=== PATIENT | female | born 1985 | race Caucasian/White ===

== ENCOUNTER 2020-05-11 12:16 | Outpatient (NON) | payer BC, SELFPAY ==
[2020-05-11 22:17] LABS: SARS-CoV-2 RNA PCR Negative
== END 2020-05-11 12:17 ==
PROVIDERS: PCP Family Medicine; Visit Provider Physician Assistant
DX: R68.89 Other general symptoms and signs (principal); Z20.822 Contact with and (suspected) exposure to COVID-19
CPT/HCPCS: C9803; U0003

== ENCOUNTER 2021-06-23 10:12 | Emergency (ER) | payer BC, SELFPAY ==
--- NOTE | ~2021-06-23 | XR_ITS ---
EXAMINATION: XR hand LT min 3V INDICATION: Left hand pain TECHNIQUE: Three views of the left hand are obtained COMPARISON: None available FINDINGS: There is no fracture, dislocation, or subluxation. The bones, soft tissues, and joint space s are normal. IMPRESSION: 1. No acute osseous abnormality. Reviewed, dictated and finalized at location A. 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
[2021-06-23 10:22] VITALS: BP 124/65; PULSE 78; RESP 16; TEMP 36.5; O2SAT 100
--- NOTE | 2021-06-23 10:27 | ED.UPPEXIN ---
HPI - Extremity Injury (Upper) General Chief Complaint: Extremity Injury, Upper Stated Complaint: INJURED L HAND Time Seen by Provider: 06/23/21 10:27 Source: patient Mode of arrival: ambulatory Limitations: no limitations History of Present Illness HPI narrative: Rose Marie Higgins is a 35 yo female with a PMH of hypothyroid who comes to the [facility] with L hand injury from 3 yo closing closet on hand this morning, pain at distal metatarsals. states pain is worst when tries to bend fingers, mild swelling no ecchymosis Related Data Home Medications Medication Instructions Recorded Confirmed levothyroxine [Tirosint] PO 06/23/21 Allergies Allergy/AdvReac Type Severity Reaction Status Date / Time Gluten Flour Allergy Intermediate Diarrhea,CR Uncoded 05/20/20 10:04 AMPS Review of Systems Review of Systems: CONSTITUTIONAL: Denies fever, chills, sweats. EYES: Denies visual changes, redness, discharge. ENT: Denies rhinorrhea, congestion, sore throat, otalgia. CARDIOVASCULAR: Denies chest pain, palpitations, edema. RESPIRATORY: Denies dyspnea, wheezing, cough GASTROINTESTINAL: Denies abdominal pain, nausea, vomiting, diarrhea. GENITOURINARY: Denies dysuria, hematuria, abnormal discharge SKIN: Denies rash or itching. NEUROLOGIC: Denies numbness, or focal weakness. PSYCHIATRIC: Denies anxiety or depression. Left hand pain with swelling base of fingers PMFSH Past Medical History Medical History Hypothyroid Family History Family History Sibling Asthma Other Family history of thyroid disease Social History Social History Smoking status: Never smoker Alcohol intake: never Comments At time of signature, I agree with nursing past medical, surgical, social and family history. There is no relevant family history pertinent to the presenting complaint. Exam Narrative: GENERAL: This is a well-nourished, well-developed patient, in mild distress. HEAD: normocephalic, atraumatic. EYES Sclera clear/white. Vision is grossly intact. EARS: External ears normal, . Hearing grossly intact. NOSE: External nose normal without nasal discharge, nares without redness, no rhinorrhea. THROAT: Mucous membranes moist, NECK: Neck supple, non-tender CARDIOVASCULAR: Regular rate and rhythm without murmurs, gallops, or rubs. RESPIRATORY: Clear to auscultation. Breath sounds equal bilaterally. No wheezes, rales, or rhonchi. GASTROINTESTINAL: Abdomen soft, SKIN: warm, intact with no suspicious lesions or rash, good texture and turgor. NEURO: awake, alert, and oriented to person, place and time. There were no obvious focal neurologic abnormalities. Steady gait EXTREMITIES: Normal range of motion. Left hand swelling at the base of fingers, soft tissues, able to do finger opposition with pain, no ecchymosis in area of pain, swelling BACK: Nontender without deformity Course Course Emergency Course: Patient comes with a injury to left hand after child pushed close door onto hand this morning X-ray of left hand shows no change in bone and soft tissue or joint spaces Recommend Tylenol for pain and ice and Parish wrap Level of Care: Express Care Visit Vital Signs Vital signs: Vital Signs Temperature 97.7 F 06/23/21 10:22 Pulse Rate 78 06/23/21 10:22 Respiratory Rate 16 06/23/21 10:22 Blood Pressure 124/65 06/23/21 10:22 Pulse Oximetry 100 06/23/21 10:22 Temperature 97.7 F 06/23/21 10:22 Pulse Rate 78 06/23/21 10:22 Respiratory Rate 16 06/23/21 10:22 Blood Pressure 124/65 06/23/21 10:22 Pulse Oximetry 100 06/23/21 10:22 MDM - Extremity Injury (Upper) Differential Diagnosis Differential diagnosis: Likely sprain and strain of wrist, fracture of wrist, fracture of clavicle and other (Soft tissue injury of hand) Critical Care Time
== END 2021-06-23 10:53 | disposition home or self-care (01) ==
PROVIDERS: Emergency Provider Nurse Practitioner; PCP Family Medicine
DX: S69.92XA Unspecified injury of left wrist, hand and finger(s), initial encounter (principal); X58.XXXA Exposure to other specified factors, initial encounter; E03.9 Hypothyroidism, unspecified
CPT/HCPCS: 73130; 99213; G0463

== ENCOUNTER 2021-08-07 20:34 | Emergency (ER) | payer BC, SELFPAY ==
--- NOTE | ~2021-08-07 | XR_ITS ---
EXAM: XR ankle RT 2V, XR foot RT min 3V HISTORY: SLIPPED ON STEPS. ROLLED Ankle, lateral MALLEOLUS PAIN, right metatarsal pain extending into the toes COMPARISON: None available FINDINGS: Subjective appearance of generally decreased mineralization. Joint spaces are maintained. No fracture or dislocation. Cortical irregularity and subchondral cyst formation at the medial aspect of the talar dome, likely secondary to old trauma or a chronic osteochondral defect. IMPRESSION: No acute osseous finding in the right ankle or right foot. Reviewed, dictated and finalized at location K. IMPRESSION: No acute osseous finding in the right ankle or right foot.
[2021-08-07 20:36] VITALS: BP 113/65; PULSE 92; RESP 16; TEMP 36.7; O2SAT 100
--- NOTE | 2021-08-07 20:55 | ED.LOWEXIN ---
HPI - Extremity Injury (Lower) General Chief Complaint: Extremity Injury, Lower <Sultana Newell PA-C - Last Filed: 08/07/21 21:53> Stated Complaint: R ankle injury <GAURANG Sanders Last Filed: 08/07/21 21:53> Time Seen by Provider: 08/07/21 20:43 <GAURANG Sanders Last Filed: 08/07/21 21:53> Source: patient <GAURANG Sanders Last Filed: 08/07/21 21:53> Mode of arrival: wheelchair <GAURANG Sanders Last Filed: 08/07/21 21:53> Limitations: no limitations <GAURANG Sanders Last Filed: 08/07/21 21:53> History of Present Illness HPI Narrative: This is a 36 year old female that presents to the ER for a right ankle injury sustained just prior to arrival. Reports she was walking down the steps and tripped down the last step. Reports twisting her right ankle. Reports decreased ROM and pain in the area. She is unable to bear weight due to pain. She is currently 12 weeks . Her OB is Dr. Ontiveros. No injuries to the abdomen. Denies other injuries, or numbness. <Sultana Newell PA-C - Last Filed: 08/07/21 21:53> Related Data Home Medications: Home Medications Medication Instructions Recorded Confirmed levothyroxine [Tirosint] PO 06/23/21 <Sultana Newell PA-C - Last Filed: 08/07/21 21:53> Allergies/Adverse Reactions: Allergies Allergy/AdvReac Type Severity Reaction Status Date / Time Gluten Flour Allergy Intermediate Diarrhea,CR Uncoded 05/20/20 10:04 AMPS <GAURANG Sanders Last Filed: 08/07/21 21:53> Review of Systems Review of Systems: CONSTITUTIONAL: Denies fever MUSCULOSKELETAL: Reports joint pain, and myalgia. NEUROLOGIC: Denies numbness <GAURANG Sanders Last Filed: 08/07/21 21:53> All systems reviewed & are unremarkable except as noted in HPI and below <GAURANG Sanders Last Filed: 08/07/21 21:53> [facility] Past Medical History Medical History: Medical History Hypothyroid <GAURANG Sanders Last Filed: 08/07/21 21:53> Family History Family History: Family History Sibling Asthma Other Family history of thyroid disease <GAURANG Sanders Last Filed: 08/07/21 21:53> Social History Social History: Social History Smoking status: Never smoker Alcohol intake: never <GAURANG Sanders Last Filed: 08/07/21 21:53> Exam Narrative: GENERAL: Well-appearing, well-nourished, and in no acute distress. HEAD: Normocephalic, atraumatic. EYES: EOMI. EXTREMITIES: Mildly decreased active ROM in the right ankle due to pain. No edema or obvious deformity. Normal DP pulses. Normal sensation SKIN: Warm, dry, no rash. NEURO: No focal deficits. Alert and oriented x3. PSYCH: Normal mood and affect <GAURANG Sanders Last Filed: 08/07/21 21:53> Course Vital Signs Vital signs: Vital Signs Temperature 98.1 F 08/07/21 20:36 Pulse Rate 92 08/07/21 20:36 Respiratory Rate 16 08/07/21 20:36 Blood Pressure 113/65 08/07/21 20:36 Pulse Oximetry 100 08/07/21 20:36 Temperature 98.1 F 08/07/21 20:36 Pulse Rate 92 08/07/21 20:36 Respiratory Rate 16 08/07/21 20:36 Blood Pressure 113/65 08/07/21 20:36 Pulse Oximetry 100 08/07/21 20:36 <GAURANG Sanders Last Filed: 08/07/21 21:53> Procedures Other Procedure Procedure 1: Other Procedure: Bedside ultrasound performed which shows positive movement with appropriate cardiac activity <GAURANG Sanders Last Filed: 08/07/21 21:53> MDM - Extremity Injury (Lower) MDM Narrative Medical decision making narrative: Patient presents to the emergency department after right ankle injury today. Right foot and ankle x-rays are without acute osseous abnormalities. Patient placed in Parish w
[2021-08-07] MEDS: ACETAMINOPHEN 500 MG TABLET 1000 MG PO (21:15)
== END 2021-08-07 22:00 | disposition home or self-care (01) ==
PROVIDERS: Emergency Provider Emergency Medicine; PCP Family Medicine
DX: O9A.211 Injury, poisoning and certain other consequences of external causes complicating pregnancy, first trimester (principal); S93.401A Sprain of unspecified ligament of right ankle, initial encounter; S96.911A Strain of unspecified muscle and tendon at ankle and foot level, right foot, initial encounter; O99.281 Endocrine, nutritional and metabolic diseases complicating pregnancy, first trimester; E03.9 Hypothyroidism, unspecified; X50.9XXA Other and unspecified overexertion or strenuous movements or postures, initial encounter; Z3A.12 12 weeks gestation of pregnancy
CPT/HCPCS: 73600; 73630; 99283; A9270

== ENCOUNTER 2021-11-18 15:17 | Outpatient (RCR) | payer BC, SELFPAY | END 2022-02-07 11:11 | disposition home or self-care (01) | LOC: ANHDMC 15:17 | PROVIDERS: PCP Family Medicine; Visit Provider Obstetrics & Gynecology | DX: O24.319 Unspecified pre-existing diabetes mellitus in pregnancy, unspecified trimester (principal); Z3A.00 Weeks of gestation of pregnancy not specified; Z71.3 Dietary counseling and surveillance | CPT/HCPCS: G0108 ==

== ENCOUNTER 2022-02-07 09:41 | Outpatient (RCR) | payer BC, SELFPAY ==
[2021-12-23 10:31] VITALS: BP 106/64; PULSE 97
[2021-12-27 14:20] VITALS: BP 106/65; PULSE 86
[2021-12-30 14:02] VITALS: BP 115/64; PULSE 95
[2022-01-03 10:06] VITALS: BP 103/70; PULSE 85
[2022-01-06 09:54] VITALS: BP 110/65; PULSE 94
[2022-01-10 10:18] VITALS: BP 98/69; PULSE 90
[2022-01-13 16:04] VITALS: BP 99/58; PULSE 85
[2022-01-17 10:00] VITALS: BP 101/64; PULSE 94
[2022-01-20 13:23] VITALS: BP 109/68; PULSE 97
[2022-01-24 10:39] VITALS: BP 110/70; PULSE 86
[2022-01-27 09:52] VITALS: BP 109/71; PULSE 81
[2022-01-31 10:00] VITALS: BP 108/66; PULSE 81
[2022-02-03 10:00] VITALS: BP 114/71
[2022-02-07 10:04] VITALS: BP 119/77; PULSE 86
== END 2022-03-23 23:59 | disposition home or self-care (01) ==
LOC: ANHOBOP 09:41
PROVIDERS: PCP Family Medicine; Visit Provider Obstetrics & Gynecology
DX: O24.419 Gestational diabetes mellitus in pregnancy, unspecified control (principal); Z3A.32 32 weeks gestation of pregnancy; Z3A.33 33 weeks gestation of pregnancy; Z3A.35 35 weeks gestation of pregnancy; Z3A.37 37 weeks gestation of pregnancy; Z3A.38 38 weeks gestation of pregnancy
CPT/HCPCS: 59025

== ENCOUNTER 2022-02-09 05:06 | Inpatient (IN) | payer BC, SELFPAY ==
[2022-02-09] VITALS (83 sets, daily range): BP systolic 68–152; BP diastolic 24–116; PULSE 72–123; RESP 16–18; TEMP 36.8–37; O2SAT 94–100; BMI 26.2
[2022-02-09 05:45] LABS: Glucose Point of Care 121 mg/dl (65-105)
--- NOTE | 2022-02-09 05:48 | LDADM ---
This patient, Rose Marie Higgins, was admitted to Labor/Delivery/Recovery 105 on 02/09/22 at 05:06. Plans for labor, pain management and were discussed with patient. Patient/family oriented to hospital policies and general routines including ID bracelet, bed and alarms, visiting hours, pain management, procedures, bathroom and other care routines, personal items, smoking policy, room service/diet and guest tray routines, infant security routines, and visiting hours. Patient/Family are encouraged to report perceived risks to care and to ask questions if they do not understand what they are told or what they should do. See OBIX for further documentation.
[2022-02-09 05:49] LABS: Basophils Absolute Auto 0.1 K/mm3 (0.0-0.1); Basophils Percent Auto 0.8 % (0.2-1.2); Eosinophils Absolute Auto 0.2 K/mm3 (0-0.3); Eosinophils Percent Auto 2.7 % (0-4.4); Hematocrit 36.5 % (37.0-47.0); Hemoglobin 12.5 g/dL (12.0-15.0); Immature Granulocyte Absolute 0.05 K/mm3 (0.00-0.031); Immature Granulocyte Percent A 0.7 % (0-0.5); Lymphocytes Absolute Auto 1.11 K/mm3 (0.9-3.2); Lymphocytes Percent Auto 15.1 % (18.3-44.2); Mean Corpuscular HGB Conc 34.2 g/dl (32-36); Mean Corpuscular Hemoglobin 32.3 pg (26-34); Mean Corpuscular Volume 94.3 fl (80-100); Mean Platelet Volume 11.1 fl (7.4-10.4); Monocytes Absolute Auto 0.4 K/mm3 (0.1-0.6); Monocytes Percent Auto 5.9 % (2.6-8.5); Neutrophils Absolute Auto 5.5 K/mm3 (1.3-6.7); Neutrophils Percent Auto 74.8 % (45.5-73.1); Platelet Count Result 163 k/mm3 (150-375); Red Blood Count 3.87 M/mm3 (4.2-5.4); Red Cell Distribution Width 14.7 % (11.5-14.5); White Blood Count 7.3 K/mm3 (4.5-10.0)
[2022-02-09] MEDS: LACTATED RINGERS 1,000 ML 125 ML IV CONT ×2 (06:09→09:00)
[2022-02-09] MEDS: OXYTOCIN 30 UNITS/NS 500 ML 30 UNITS/500 ML BAG IV CONT (06:10)
[2022-02-09] MEDS: AMPICILLIN 2 GM/NS 100 ML 2 GM/100 ML BAG IVPB (06:10)
--- NOTE | 2022-02-09 07:38 | WPDOBADMIT ---
Obstetrics - Admit Note Admission Note: record reviewed. Additions to the history and/or subsequent changes in the physical findings follow. 36 y/o at 39 weeks here for induction of labor. A2DM, on glyburide at bedtime. GBS bacteruria. AVSS NST reactive TOCO: contractions every 2-5 min ABD soft, nontender, gravid, vertex EXT nontender Cervix 2-3/50/-2. AROM with clear fluid. Vertex. A: IUP at term with favorable cervix, A2DM. GBS pos. P: Oxytocin. Monitor accuchecks. Ampicillin. Anticipate .
[2022-02-09] MEDS: FAMOTIDINE 20 MG/2 ML VIAL IV PUSH (07:49)
[2022-02-09 07:54] LABS: Glucose Point of Care 113 mg/dl (65-105)
--- NOTE | 2022-02-09 09:40 | WPDANESEPPF ---
Anes - Initial Pre Proc Eval Procedure: labor epidural Date/Time: 02/09/22 09:40 Surgeon: Nishant Ontiveros MD Pre Op Diagnosis: labor pain Pre Op Diagnosis: IOL Patient Data Age: 36 Gender: F Height: 1.7 m Weight: 76 kg Last Vital Signs Temp 36.8 C 02/09/22 09:00 Pulse 76 02/09/22 09:39 BP 120/74 02/09/22 09:39 Pulse Ox 100 02/09/22 09:36 O2 Del Method Room Air 02/09/22 05:47 Allergies Allergy/AdvReac Type Severity Reaction Status Date / Time Gluten Flour Allergy Intermediate Diarrhea,CR Uncoded 01/20/22 12:42 AMPS Home Medications Medication Instructions Recorded Confirmed Type glyburide 2.5 mg tablet 2.5 mg PO HS 12/23/21 02/09/22 History levothyroxine 112 mcg capsule 112 mcg PO DAILY 12/23/21 02/09/22 History (Tirosint) vit no.95-ferrous 1 tablet PO DAILY 12/23/21 02/09/22 History fumarate 28 mg-folic acid 800 mcg tablet () Laboratory Tests 02/09/22 02/09/22 02/09/22 05:39 05:41 05:41 WBC 7.3 K/mm3 K/mm3 (4.5-10.0) RBC 3.87 M/mm3 L M/mm3 (4.2-5.4) Hgb 12.5 g/dL g/dL (12.0-15.0) Hct 36.5 % L % (37.0-47.0) MCV 94.3 fl fl (80-100) MCH 32.3 pg pg (26-34) MCHC 34.2 g/dl g/dl (32-36) RDW 14.7 % H % (11.5-14.5) Plt Count 163 k/mm3 k/mm3 (150-375) MPV 11.1 fl H fl (7.4-10.4) Immature Gran % (Auto) 0.7 % H % (0-0.5) Neut % (Auto) 74.8 % H % (45.5-73.1) Lymph % (Auto) 15.1 % L % (18.3-44.2) Arthur % (Auto) 5.9 % % (2.6-8.5) Eos % (Auto) 2.7 % % (0-4.4) Baso % (Auto) 0.8 % % (0.2-1.2) Lymph # (Auto) 1.11 K/mm3 K/mm3 (0.9-3.2) Arthur # (Auto) 0.4 K/mm3 K/mm3 (0.1-0.6) Eos # (Auto) 0.2 K/mm3 K/mm3 (0-0.3) Baso # (Auto) 0.1 K/mm3 K/mm3 (0.0-0.1) Abs Immat Gran (auto) 0.05 K/mm3 H K/mm3 (0.00-0.031) Absolute Neuts (auto) 5.5 K/mm3 K/mm3 (1.3-6.7) Absolute Nucleated RBC 0.0 K/mm3 K/mm3 (0.0-0.012) Nucleated RBC % 0.0 % % (0.0-0.2) POC Capillary Glucose 121 mg/dl H mg/dl (65-105) RPR Pending Blood Type Antibody Screen 02/09/22 02/09/22 05:41 07:52 WBC RBC Hgb Hct MCV MCH MCHC RDW Plt Count MPV Immature Gran % (Auto) Neut % (Auto) Lymph % (Auto) Arthur % (Auto) Eos % (Auto) Baso % (Auto) Lymph # (Auto) Arthur # (Auto) Eos # (Auto) Baso # (Auto) Abs Immat Gran (auto) Absolute Neuts (auto) Absolute Nucleated RBC Nucleated RBC % POC Capillary Glucose 113 mg/dl H mg/dl (65-105) RPR Blood Type A Positive Antibody Screen Negative Patient hx anesthesia problems: none Family hx anesthesia problems: none Results Review: All pre-operative results and documents have been reviewed as part of the pre-operative evaluation. [facility] Past Medical History Medical History Hypothyroid Family History Family History (Updated 01/20/22 @ 12:47 by Tashia Hernandez RN) Sibling Asthma Family history of thyroid disease Father Family history of thyroid disease Mother Family history of thyroid disease Social History Social History Smoking status: Never smoker Alcohol intake: never Substance use: never Spiritual care concerns: No Anes - Eval Final PreProcedure Day of Procedure 02/09/22 09:40 Patient weight: overweight ASA classification: III Anesthetic plan: proceed Anesthesia type and monitoring: regional epidural and standard monitoring Resu
[2022-02-09] MEDS: AMPICILLIN 1 GM/NS 50 ML 1 GM/50 ML BAG IVPB (10:10)
[2022-02-09] MEDS: LIDOCAINE HCL 1% PF 30 ML VIAL (12:39)
--- NOTE | 2022-02-09 13:31 | P.PCNOB_ITS ---
OB - Delivery Note Procedure Delivery date: 02/09/22 Procedure: Induction of labor with Induction method: Per Pitocin Protocol Delivery augmentation: Rupture of Membranes Delivery monitor: External FHT and External Uterine Route of delivery: Laceration Description: Perineal - 2nd Degree Delivery repair: vicryl (3-0) Specimen: Yes (cord blood) Quantitative Blood Loss (ml): 85 Anesthesia type: Local (1% lidocaine) Disposition: PACU Complications: None Narrative: 36 y/o at 39 weeks gestation who presented to the hospital for induc tion of labor. She was given ampicillin for GBS colonization. Accuchecks were monitored. Oxytocin was administered intravenously. Amniotomy was performed with return of clear fluid. She received an epidural for pain control. Her labor progressed and her cervix dilated completely. She pushed with good effort and delivered the 's head to the perineum, followed by the body. The nose and mouth were bulb suctioned. After a delay, the cord was clamped and cut. The infant was handed off the field. Cord blood was collected. The placenta delivered spontaneously and was grossly normal in appearance. The usual 3 vessel cord was noted. A second degree midline perineal laceration was sustained. This was infiltrated with 10 mL 1% lidocaine and reapproximated using 3 0 Vicryl in the usual layered fashion. Excellent hemostasis resulted as did excellent reapproximation of the normal anatomy. Needle and instrument counts were correct. The patient was taken to recovery room in stable condition. The went to the nursery in stable condition. I was present and scrubbed for the entire delivery. [place] Baby Date of : 02/09/22 Time of : 12:36 Weeks of gestation at delivery: 39 Infant gender: Female Weight (pounds): 7 Weight (ounces): 1 presentation: vertex position: Left Occiput Anterior Placenta delivery description: Spontaneous and Normal Configuration Cord Vessel Description: 3 Vessels and Delayed Cord Clamping score one minute: 8 score five minutes: 9
[2022-02-09] MEDS: WITCH HAZEL 40 PADS 1 PAD TOPICAL (14:36)
[2022-02-09] MEDS: BENZOCAINE 20% AER SPR (*SP) 56 GM CAN 1 SPRAY TOPICAL (14:36)
[2022-02-09] MEDS: IBUPROFEN 600 MG TABLET PO ×2 (14:36→20:13)
--- NOTE | 2022-02-09 15:22 | PM.OBDSVD ---
DS: Admitting Diagnosis Discharge Date 02/11/22 Admitting Diagnosis IUP at 39 weeks Favorable cervix A2DM GBS bacteruria DS: Discharge Diagnosis Discharge Diagnosis (1) (normal spontaneous vaginal delivery): Code(s): O80 - Encounter for full-term uncomplicated delivery Status: Acute (2) Gestational diabetes mellitus: Code(s): O24.419 - Gestational diabetes mellitus in , unspecified control Status: Acute (3) GBS (group B streptococcus) UTI complicating : Code(s): O23.40 - Unspecified infection of urinary tract in , unspecified trimester; B95.1 - Streptococcus, group B, as the cause of diseases classified elsewhere Status: Acute OB - DS: Summary OB Procedures : None OB Procedures Intrapartum: Spontaneous Vag Delivery OB Procedures: : None Time Spent with Patient Time attestation: Total time spent providing and/or coordinating discharge services: DS: Data Data Completed and Pending Labs on day of discharge: Labs from last 24 hours 02/09/22 02/09/22 02/09/22 07:52 05:41 05:41 WBC RBC Hgb Hct MCV MCH MCHC RDW Plt Count MPV Immature Gran % (Auto) Neut % (Auto) Lymph % (Auto) [place]ombs % (Auto) Eos % (Auto) Baso % (Auto) Lymph # (Auto) [place]ombs # (Auto) Eos # (Auto) Baso # (Auto) Abs Immat Gran (auto) Absolute Neuts (auto) Absolute Nucleated RBC Nucleated RBC % POC Capillary Glucose 113 H RPR Pending Blood Type A Positive Antibody Screen Negative 02/09/22 02/09/22 05:41 05:39 WBC 7.3 RBC 3.87 L Hgb 12.5 Hct 36.5 L MCV 94.3 MCH 32.3 MCHC 34.2 RDW 14.7 H Plt Count 163 MPV 11.1 H Immature Gran % (Auto) 0.7 H Neut % (Auto) 74.8 H Lymph % (Auto) 15.1 L [place] % (Auto) 5.9 Eos % (Auto) 2.7 Baso % (Auto) 0.8 Lymph # (Auto) 1.11 [place] # (Auto) 0.4 Eos # (Auto) 0.2 Baso # (Auto) 0.1 Abs Immat Gran (auto) 0.05 H Absolute Neuts (auto) 5.5 Absolute Nucleated RBC 0.0 Nucleated RBC % 0.0 POC Capillary Glucose 121 H RPR Blood Type Antibody Screen Discharge Plan Discharge Attending physician on discharge: Nishant Ontiveros Discharging Clinician: Nishant Ontiveros Patient Disposition: Home, Self-Care Activity: pelvic rest Diet: regular Discharge Instructions: Call or return if temperature above 100.4? F, increased abdominal pain, increased vaginal bleeding or any new problems. Stand Alone Forms: General Discharge Information Follow-up/Referrals: Nishant Ontiveros MD [Physician] - 6 Weeks Discharge Medications: New ibuprofen 600 mg tablet 600 mg PO Q6H PRN (Reason: cramps) Qty: 30 0RF hydrocodone-acetaminophen 5-325 mg tablet 1 tablet PO Q6H Qty: 20 0RF Continued levothyroxine [Tirosint] 112 mcg Capsule 112 mcg PO DAILY PNV cmb#95-ferrous fumarate-FA [] 28 mg iron- 800 mcg Tablet 1 tablet PO DAILY Discontinued glyburide 2.5 mg Tablet 2.5 mg PO HS Date of admission: 02/09/22 05:06 Primary Care Provider: Jasmin Doe Admitting Provider: Nishant Ontiveros Attending physician on admission: Nishant Ontiveros Condition: Stable
--- NOTE | 2022-02-09 15:38 | OBPPTRN ---
Patient transferred to post room #281 via wheelchair. Support person present. Oriented to unit, room, information board, rooming in, admission packet and security measures. Patient verbalizes understanding.
[2022-02-09] MEDS: DOCUSATE SODIUM 100 MG CAPSULE PO (17:14)
[2022-02-09] MEDS: ACETAMINOPHEN 325 MG TABLET 650 MG PO (17:14)
[2022-02-10] MEDS: ACETAMINOPHEN 325 MG TABLET 650 MG PO ×2 (00:37→07:38)
[2022-02-10 01:10] VITALS: BP 112/62; PULSE 70; RESP 18; TEMP 36.6; O2SAT 97
[2022-02-10 04:31] VITALS: BP 109/74; PULSE 77; RESP 18; TEMP 36.5; O2SAT 98
[2022-02-10] MEDS: IBUPROFEN 600 MG TABLET PO ×3 (04:38→20:26)
[2022-02-10 05:15] LABS: Hematocrit 33.7 % (37.0-47.0); Hemoglobin 11.4 g/dL (12.0-15.0)
[2022-02-10] MEDS: MULTIVIT/MIN/PREN/FOL AC/IRON TABLET 1 TAB PO (07:38)
[2022-02-10] MEDS: DOCUSATE SODIUM 100 MG CAPSULE PO ×2 (07:38→16:17)
[2022-02-10 07:57] LABS: Rapid Plasma Reagin Non-Reactive (NonReactive)
--- NOTE | 2022-02-10 07:58 | WPDANLDPN2 ---
Anes-Prog Note L&D Date/Time: 02/10/22 07:58 Comfortable throughout: labor and delivery Neuraxial method: epidural Epidural/Spinal procedure site: clean & non-tender Neuro status: Neuro function grossly intact. Cardiovascular status: normal Respiratory status: normal Airway patency: baseline Mental status: baseline Post-Op hydration status: normal Vital Signs: Last Vital Signs Temp 97.7 F 02/10/22 04:31 Pulse 77 02/10/22 04:31 Resp 18 02/10/22 04:31 BP 109/74 02/10/22 04:31 Pulse Ox 98 02/10/22 04:31 O2 Del Method Room Air 02/09/22 15:45 Pain score (VAS): 0/10 I/O: Intake & Output 02/09/22 02/09/22 02/10/22 15:59 23:59 07:59 Intake Total 1050 Output Total 85 Balance 965 Post-procedural complaints: none Patient feedback: Patient satisfied with anesthetic care.
[2022-02-10 08:45] VITALS: BP 120/70; PULSE 82; RESP 16; TEMP 36.7; O2SAT 98
[2022-02-10 11:54] VITALS: BP 102/60; PULSE 88; RESP 16; TEMP 36.8; O2SAT 98
--- NOTE | 2022-02-10 11:54 | PM.OBPNVD ---
OB - PN: Subj Subjective Date/time seen: 02/10/22 11:54 Narrative: Pain OK. Epidural site is sore. No headache. OB - PN: Obj Data Labs CBC & Chem 7: 02/10/22 05:05 Labs: Laboratory Results - last 24 hr 02/09/22 02/10/22 05:41 05:05 Hgb 11.4 L Hct 33.7 L RPR Non-reactive OB - PN A/P Assessment and Plan (1) (normal spontaneous vaginal delivery): Code(s): O80 - Encounter for full-term uncomplicated delivery Status: Acute Plan Comments: A: PPD#1, doing well. P: Routine care. Exam Psych: Other: AVSS ABD soft, nontender, fundus firm EXT nontender
[2022-02-10] MEDS: HYDROcodone/acetaminophen (*CRX) 5-325 MG TABLET 1 TAB PO ×2 (12:55→17:35)
--- NOTE | 2022-02-10 13:18 | PC.NURSE ---
0842 - Introductions were made, then consulted with patient to assess needs related to . Mother led the conversation with her?plans to feed?her and the?experience so far. Resources provided for inpatient and outpatient services using a resource guide and mom/baby guide. Mother voiced understanding of information and will call if there is a request for assistance. [phone] Consulted with patient to assess needs related to . Mother works well with her infant with encouragement and education. Encouraged understanding of the benefits of skin to skin (unwrapping and placing vertically on her chest), responsive feeding and how to watch for early feeding signs, frequency of feeding on demand about every 8-12 times in 24 hours (every 2-3 hours), milk production, duration of feeding,massage touch, signs of adequate intake/output and how to record on the feeding sheet. Reviewed positioning and ear, shoulder, hip alignment, supporting the breast, asymmetrical latch (off-center), and leading with the chin with a big open side gape. latched optimally to the left breast in football position. Education given to mother of how to visualize suck/swallow ratios and listening for drinking at the breast. Infant was able to maintain latch without discomfort to mother. Nipple care reviewed with optimal latch and good positioning. Reminding mother of comfort measures of healing with a warm and wet washcloth for care and prevention of engorgement. Reviewed good handwashing when or touching the breast/nipples to prevent infection. Resources used to facilitate learning were used with the tool and mom/baby guide. Mother demonstrated understanding of responsive feedings, stimulating with skin to skin, hand expressed colostrum, massage touch, talking to infant to encourage if it has been 2 -3 hours since the start of the last , to call if infant does not latch or there is discomfort with . Reported to the primary RN.
[2022-02-10 20:17] VITALS: BP 94/45; PULSE 65; RESP 16; TEMP 36.7; O2SAT 97
[2022-02-11] MEDS: DOCUSATE SODIUM 100 MG CAPSULE PO (07:05)
[2022-02-11] MEDS: IBUPROFEN 600 MG TABLET PO (07:05)
[2022-02-11] MEDS: MULTIVIT/MIN/PREN/FOL AC/IRON TABLET 1 TAB PO (07:05)
[2022-02-11 07:55] VITALS: BP 109/61; PULSE 72; RESP 16; TEMP 36.6; O2SAT 97
[2022-02-11 08:00] VITALS: PULSE 65; RESP 16; O2SAT 97
--- NOTE | 2022-02-11 08:48 | PM.OBPNVD ---
OB - PN: Subj Subjective Date/time seen: 02/11/22 08:48 Narrative: Pain OK. Would like to go home. OB - PN: Obj Data Labs CBC & Chem 7: 02/10/22 05:05 OB - PN A/P Plan Comments: A: PPD#2, doing well. P: Home to f/u 6 weeks. Exam Psych: Other: AVSS ABD soft, nontender, fundus firm EXT nontender
--- NOTE | 2022-02-11 09:36 | PC.NURSE ---
Patient viewed the discharge video Mother & Baby Care, The First Two Weeks . Patient was given the opportunity and encouraged to ask questions. Patient verbalized understanding of information shared and has been given the mother/baby guide for home reference.
[2022-02-14 10:19] VITALS: BP 126/76; PULSE 67; RESP 16; TEMP 37.1; O2SAT 98
== END 2022-02-11 11:45 | disposition home or self-care (01) | DRG 807 ==
LOC: ANHLDR 15:23 → ANHOB2 16:04
PROVIDERS: Admitting Provider Obstetrics & Gynecology; PCP Family Medicine; Visit Provider Obstetrics & Gynecology
DX: O99.824 Streptococcus B carrier state complicating childbirth (principal); Z37.0 Single live birth; O70.1 Second degree perineal laceration during delivery; O99.284 Endocrine, nutritional and metabolic diseases complicating childbirth; O24.425 Gestational diabetes mellitus in childbirth, controlled by oral hypoglycemic drugs; Z3A.39 39 weeks gestation of pregnancy
CPT/HCPCS: 36415; 82948; 85014; 85018; 85025; 86592; 86850; 86900; 86901; A9270; J0290; J2590; J2795; J7120

== ENCOUNTER 2024-04-02 15:24 | Outpatient (CLI) | payer BC, SELFPAY ==
[2024-04-02 16:11] LABS: Influenza A QL RT-PCR Negative (Negative); Influenza B QL RT-PCR Negative (Negative); RSV RNA, RT-PCR Negative (Negative); SARS-CoV-2 RNA PCR Negative (Negative)
== END 2024-04-02 15:25 | disposition home or self-care (01) ==
PROVIDERS: PCP Family Medicine; Visit Provider Physician Assistant
DX: J02.9 Acute pharyngitis, unspecified (principal); R05.9 Cough, unspecified
CPT/HCPCS: 87637

== ENCOUNTER 2024-04-03 11:37 | Outpatient (CLI) | payer BC, SELFPAY ==
--- NOTE | ~2024-04-03 | XR_ITS ---
XR chest 2V Ordering provider: Barb Aaron PA-C History: 38 years Female with . R05.9 - Cough, unspecified . Comparison: None. FINDINGS: MEDIASTINUM: The cardiac silhouette is not enlarged. LUNGS: No infiltrates, effusions or pneumothorax. OTHER: No free air under the diaphragm. IMPRESSION: No acute cardiopulmonary pathology. Reviewed, dictated and finalized at location A. ATION DEAN
== END 2024-04-03 11:38 | disposition home or self-care (01) ==
LOC: ANHIMG 11:39
PROVIDERS: PCP Family Medicine; Visit Provider Physician Assistant
DX: R05.9 Cough, unspecified (principal)
CPT/HCPCS: 71046

== ENCOUNTER 2025-02-15 17:20 | Emergency (ER) | payer BC, SELFPAY ==
--- OUTSIDE RECORDS SUMMARY | 2024-06-11 08:20 | XMS_ITS ---
Author Organization [facility] Address [address] [place], [place] [address] Care Team Providers Care Catalytic Converter Operator Helper Name Role Phone Meghan Michaud [phone] REASON FOR VISIT hypothyroidism/ Re-establish care Encounters Encounter Location Date Provider Diagnosis [facility] Dr. Michaud [address] [place] [id number] 06/11/2024 Meghan Michaud Plan Of Treatment Next Appt Details Provider Name:Meghan Michaud, 09:20:00 AM, [address] [place] [address], [phone], Progress Notes * Vickie SALGADOOB:0 1985 (39 yo F)Acc No.[id number]:06/11/2024 Progress Notes Patient: Rose Marie Han Provider: Hubert Michaud MD :1985 A ge:38 Y S ex:Female Date:06/11/2024 Address:[address] [place], [place] [id number] Subjective: * Chief Complaints: * h ypothyroidism/ Re-establish care * Electronic signature of Fausto Michaud MD on 02/15/2025 at 05:21 PM CDT Sign off status: Pending * Provider: Hubert Michaud MD Date: 0 06/11/2024 Generated for Printi ng/Faxing/eTransmitting on: 1 05:21 PM CDT
--- OUTSIDE RECORDS SUMMARY | 2024-07-09 05:40 | XMS_ITS ---
Author Organization [employer] [facility] Address [address] [place] [place] [address] Care Team Providers Care Manager Aerospace Name Role Phone Meghan Michaud Primary Care Provider REASON FOR VISIT 1 month f/u augustin Encounters Encounter Location Date Provider Diagnosis [facility] [employer] - Meghan Michaud [address] [place] [address] 07/09/2024 Meghan Michaud Plan Of Treatment No Information Progress Notes * Vickie SALGADOOB:0 1985 (39 yo F)Acc No.[id number]:07/09/2024 Progress Notes Patient: Rose Marie SHABAZZ Provider: Hubert Michaud MD :1985 A ge:38 Y S ex:Female Date:07/09/2024 Address:[address] [place], [place] [id number] Subjective: * Chief Complaints: * 1 . 1 month f/u augustin. * Medical History: Objective: * Vitals: Assessment: Plan: * Treatment: * Billing Information: * Visit Code: * Procedure Codes: * Electronic signature of Fausto Michaud MD on 02/15/2025 at 05:21 PM CDT Sign off status: Pending * Provider: Hubert Michaud MD Date: 0 07/09/2024 Generated for Rubén hicks/Lydia/eTransmitting on: 1 05:21 PM CDT
--- NOTE | ~2025-02-15 | CT_ITS ---
EXAMINATION: CT brain wo con COMPARISON: None HISTORY: concussion TECHNIQUE: Axial images were obtained through the brain without IV contrast. CT scan performed using dose optimization techniques including the following automated exposure control; adjustment of mA and/or kV; use of iterative reconstruction technique. Automatic exposure control was used to reduce radiation dose. Permanent radiation dose record is archived to PACS. FINDINGS: No acute infarct or parenchymal hemorrhage. No abnormal mass or mass effect. No midline shift. No extra-axial fluid collections. No hydrocephalus. . Mastoid air cells unremarkable. Sinuses and orbits unremarkable. No acute fracture. No significant facial or scalp soft tissue swelling evident. No radiopaque foreign body is seen. Impression: 1.No acute intracranial abnormality. Reviewed, dictated and finalized at location P. Impression: 1.No acute intracranial abnormality.
--- OUTSIDE RECORDS SUMMARY | 2025-02-15 17:21 | XMS_ITS | Clinical Summary ---
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 If there is a need to make changes, will recheck levels in 2-3 months. Instructions to patient on taking medication properly : in the morning, on an empty stomach , 1 h part from food and/or other meds. If any doses are missed, can take 2-3 tab together ,to make up for the missed dose; make sure at the end to the week, 7 tabs have been taken. Assessment & Plan (08/22/2017 10:58 AM CDT): Will check TSH and free T4 Will adjust dose of Levothyroxine accordingly . If there is a need to make changes, will recheck levels in 2-3 months. Instructions to patient on taking medication properly : in the morning, on an empty stomach , 1 h part from food and/or other meds. If any doses are missed, can take 2-3 tab together ,to make up for the missed dose; make sure at the end to the week, 7 tabs have been taken. 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 Family History Medical History Relation Name Comments Migraines Mother Stroke Mother Thyroid disease Other 1 Family histo ry of Thyroid disorder; Other Other 2 Family history of graves; Other Other 3 Family history of lyme disease; Other Other 4 Family history of celiac; Hyperlipidemia Other 5 Family histor y of Hyperlipidemia; Hypertension Other 6 Family history of Hypertension; Relation Name Status Comments Mother Other 1 Other 2 Other 3 Other 4 Other 5 Other 6 Social History Tobacco Use Types Packs/Day Years Used Date Smoking Tobacco: Never Alcohol Use Standard Drinks/Week Comments No 0 (1 standard drink = 0.6 oz pur e alcohol) PHQ-2 Answer Date Recorded PHQ-2 Score 0 12/29/2018 Comments Unknown Sex and Gender Information Value Date Recorded Sex Assigned at Not on file 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 Gender Identity Not on file Sexual Orientation Not on file Obstetrics History Last Filed Vital Signs Vital Sign Reading Time Taken Comments Blood Pressure 99/69 12/22/2023 10:55 AM CDT Pulse 77 12/22/2023 10:55 AM CDT Temperature 36.6 C (97.8 F) 12/22/2023 10:55 AM CDT Respiratory Rate 12 03/08/2018 3:23 PM CDT Oxygen Saturation 98% 12/22/2023 10:55 AM CDT Inhaled Oxygen Concentration - - Weight 65.8 kg (145 lb) 12/22/2023 10:55 AM CDT Height 170.2 cm (5' 7) 12/22/2023 10:55 AM CDT Body Mass Index 22.71 12/22/2023 10:55 AM CDT Plan of Treatment Health Maintenance Due Date Last Done Comments Cervical Cancer Screening 1985 Hepatitis C Screening 1985 Varicella Vaccines (1 of 2 - 13+ 2-dose series) 1998 Hepatitis B Screening 07/16/2003 Regular Well Visit/Exam 18-64 07/16/2003 HPV Vaccines (1 - 3-dose SCDM series) 2012 Depression Screening 03/08/2019 03/08/2018, 08/22/2017, 02/14/2017 Influenza Vaccine (#1) 2025 8, 02/15/2017, 02/08/2015, Additional history exists DTaP/Tdap/Td Vaccine (3 - Td or Tdap) 01/27/2027 01/27/2017, 07/22/2014 Pneumococcal vaccine <65 Aged Out No longer eligible based on patient's age to complete this topic Insurance [employer] Member Subscriber Plan / Payer ( fective 2019-Present) Name:Mya Salgado Candace Relation to Subscriber:Self Name:Mya Salgado Candace Payer ID:[id number] ([facility]) Type:[employer] Address: [address] [place] [address] Care Teams Credit Consultant Relationship Specialty Start Date End Date Jasmin Doe MD [address] [place] [address] PCP - General Family Medicine 02/14/17
--- OUTSIDE RECORDS SUMMARY | 2025-02-15 17:21 | XMS_ITS | Patient Health Record ---
Author Organization [employer] [facility] Address [address] [address] Care Team Providers Care Sow Manager Name Role Phone Meghan Michaud Primary Care Provider [phone] Allergies No Known Allergies Reason For Referral No Information Medications Medication SIG (Take, Route, Fr equency, Duration) Notes Start Date End Date Status Tirosint 100 MCG 1 capsule in the mor fiona on an empty stomach Orally Once a day Active PROzac 40 MG 1 capsule Orally Once a day Active Problems Problem Type SNOMED Code ICD Code Onset Dates Problem Status W/U Status Risk Notes Problem Vitamin D deficiency (53680315) Vitamin D deficiency, unspecified (E55.9) Active confirmed Problem Hypothyroidism (95409205) Hypothyroidism, unspecified (E03.9) Active confirmed Vital Signs Heart Rate 79 /min 06/11/2024 Blood pressure diastolic 69 mm Hg 06/11/2024 Height 67 in 06/11/2024 Blood pressure systolic 108 mm Hg 06/11/2024 Weight 157.0 lbs 06/11/2024 BMI 24.59 kg/m2 06/11/2024 Encounters Encounter Location Date Provider Diagnosis [facility] - Meghan Michaud [address] [place] [address] 07/09/2024 Meghan [facility] - Meghan Michaud [address] [place] [address] 06/11/2024 Meghan Michaud Hypothyroidism, unspecified E03.9 ; Other fatigue R53.83 ; Abnormal weight gain R63.5 ; Vitamin D deficiency, unspecified E55.9 and Gestational diabetes mellitus in , diet controlled O24.410 Assessments Encounter Date Diagnosis (ICD Code) Assessment Notes Treatment Notes Treatment Clinical Notes Section Notes 06/11/2024 Other fatigue (ICD-10 - R53.83) 06/11/2024 Hypothyroidism, unspecified (ICD-10 - E03.9) 06/11/2024 Abnormal weight gain (ICD-10 - R63.5) 06/11/2024 Vitamin D deficiency, unspecified (ICD-10 - E55.9) 06/11/2024 Gestational diabetes mellitus in , diet controlled (ICD-10 - O24.410) 06/11/2024 Other Assessment and Plan: HypothyroidismPatient reports fatigue and weight gain (12 pounds since April) without changes in diet or activity. Currently taking Tirosint 100 mcg. Recent insurance and job change requires new medication authorizations.Order thyroid function tests to assess current thyroid statusEvaluate need for dose adjustment based on lab resultsAssist with new insurance authorization for TirosintSchedule a follow-up in one month to review lab results and adjust treatment if necessary PrediabetesPatient reports occasional self-monitoring of fasting blood glucose, with today's reading at 112 mg/dL. History of gestational diabetes. Previous A1C was reported as normal by family doctor last year.Order fasting glucose and A1C tests to monitor blood sugar levelsEvaluate for vitamin and iron deficiencies as part of overall health assessmentEducate patient on diabetes risk and prevention strategies, emphasizing lifestyle modifications FatiguePatient reports feeling really tired lately for the past few months. Sleep is described as hit or miss due to childcare responsibilities, but overall pretty good. Anxiety is reported as controlled with Prozac 40 mg.Assess thyroid and glucose lab results for potential causes of fatigue, considering the patient's history of hypothyroidism and prediabetesConsider adrenal hormone testing if initial labs are inconclusive to explore other potential causes of fatigue Follow-up:Encourage patient to contact the clinic if any new or worsening symptoms occur before the scheduled follow-up. Spent 45 minutes preparing to see the patient (ex review of tests/chart), obtaining and / or reviewing separately obtained history, performing a medically appropriate examination and/or evaluation, counseling and educating the patient/family/caro centeriv er, ordering medications, tests, or procedures, referring and communicating with other health care transport nurse, documenting clinical information in the electronic or other health record, independently interpreting results and communicating results to the patient/family/caregiv er and care coordinating patient plan. Patient alert and oriented x 4 and aware of discussion noted above and in agreeance to plan in management of hypothyroidism, fatigue, weight gain evaluation, hx of gestational DM. Plan Of Treatment No Information Insurance Providers Payer Name Payer Address Payer Phone Subscriber Number Group Number Insured Name Patient Relationship to Insured Coverage Start Date Coverage End Date [facility] [address] [place] [address] [id number] Rose Marie Kebede Self - patient is the insured Medical (General) History Medical History History ICD Code VEGA'S HYPOTHYROID Surgical History Surgery Date(Month/Year) ANKLE SURGERY 2000 Hospitalization History Reason Date(Month/Year) / CHILD 15,17,
--- OUTSIDE RECORDS SUMMARY | 2025-02-15 17:21 | XMS_ITS | Clinical Summary ---
Author Organization [facility] Address [address] [address] Care Team Providers Care Screening Unit Registered Nurse Name Role Phone Unavailable Primary Care Provider Unavailabl e Source Comments [facility],non-owned Affiliates and Associated Physician Practices is amultiple site organization consisting of ambulatory clinics and hospital sitesin [place], [place], [place] and [place]. This disclosure is being madepursuant to the Care Everywhere program and may not contain all information available regarding this patient. Last updated 18.[facility] [employer] Allergies No known active allergies Immunizations Immunization Administration Dates Next Due TDAP (7yrs+) 01/27/2017 Social History Tobacco Use Types Packs/Day Years Used Date Smoking Tobacco: Never Assessed Comments Unknown Sex and Gender Information Value Date Recorded Sex Assigned at Not on file Legal Sex Female 10:18 AM CDT Gender Identity Not on file Sexual Orientation Not on file Plan of Treatment Health Maintenance Due Date Last Done Comments HIV SCREENING 2000 HEPATITIS C SCREENING 07/11/2003 HEPATITIS B VACCINE (1 of 3 - 19+ 3-dose series) 2004 PAP SMEAR 2006 HPV VACCINE (1 - 3-dose SCDM series) 2012 DEPRESSION SCREENING 05/08/2024 COVID-19 VACCINE ( - 2023-2 5 season) 2025 INFLUENZA VACCINE (#1) 2025 01/14/2022 DTAP/TDAP/TD VACCINES (2 - T d or Tdap) 01/27/2027 01/27/2017 ZOSTER VACCINE (1 of 2) 07/16/2035 HIB VACCINE Aged Out No longer eligi ble based on patient's age to complete this topic MENINGOCOCCAL (Group B) VACC INE SHARED DECISION-MAKING Aged Out No longer eligibl e based on patient's age to complete this topic MENINGOCOCCAL GROUPS A/C/Y/W VACCINE Aged Out No longer eligible b ased on patient's age to complete this topic PNEUMOCOCCAL VACCINE Aged Out No long er eligible based on patient's age to complete this topic Insurance [facility] Member Subscriber Plan / Payer (Ef fective 2019-Present) Name:Mya Salgado Relation to Subscriber:Self Name:MYA SALGADO Payer ID:[id number] ([facility]) Type:[facility] Address: [address] [place] [address] [facility]
--- OUTSIDE RECORDS SUMMARY | 2025-02-15 17:21 | XMS_ITS | Clinical Summary ---
Author Organization [facility] [place] Address [address] [facility] [place] [address] Care Team Providers Care Abstract Checker Name Role Phone Unavailable Primary Care Provider Unavailabl e Allergies No known active allergies Medications Levothyroxine 88 mcg Capsule Tirosint 88 mcg capsule Active ALPRAZolam (XANAX) 0.25 mg tablet Take 0.25 mg by mouth daily at bedtime. Active FLUoxetine (PROzac) 40 mg capsule Take 40 mg by mouth daily. Active Active Problems No known active problems Immunizations Immunization Administration Dates Next Due INFLUENZA VACCINE TRIVALENT SPLIT VIRUS, (6 MOS UP), 0.5ML (PF), IM 02/11/2025 Social History Tobacco Use Types Packs/Day Years Used Date Smoking Tobacco: Never Assessed Comments Unknown Sex and Gender Information Value Date Recorded Sex Assigned at Not on file Legal Sex Female 11:37 AM CDT Gender Identity Not on file Sexual Orientation Not on file Last Filed Vital Signs Vital Sign Reading Time Taken Comments Blood Pressure 116/80 10/16/2023 12:21 PM CDT Pulse 81 10/16/2023 12:21 PM CDT Temperature 36.9 C (98.4 F) 10/16/2023 12:21 PM CDT Respiratory Rate 17 10/16/2023 12:21 PM CDT Oxygen Saturation 100% 10/16/2023 12:21 PM CDT Inhaled Oxygen Concentration - - Weight 68 kg (150 lb) 10/16/2023 12:21 PM CDT Height 170.2 cm (5' 7) 10/16/2023 12:21 PM CDT Body Mass Index 23.49 10/16/2023 12:21 PM CDT Plan of Treatment Health Maintenance Due Date Last Done Comments HEPATITIS B VACCINES (1 of 3 - 19+ 3-dose series) 07/06 HPV/Cotest (21-29) 2006 HPV VACCINES (1 - 3-dose SCDM series) 2012 CERVICAL CANCER SCREENING 07/16/2015 HPV/Cotest (30-65) 07/16/2015 PAP SMEAR 07/16/2015 DTAP/TDAP/TD VACCINES (2 - Td or Tdap) 01/27/2027 INFLUENZA VACCINE Completed 02/11/2025 Insurance [employer]UE [employer] Member Subscriber Plan / Payer (Ef fective 2019-Present) Name:Rose Marie Dawn Relation to Subscriber:Self Name:Rose Marie Dawn Payer ID:[id number] (NA) Group ID:Not on file Type:[employer] Address: [place] [address] [employer]
--- OUTSIDE RECORDS SUMMARY | 2025-02-15 17:21 | XMS_ITS | Encounter Summary ---
Author Organization [facility] Address [address] [place] [address] Care Team Providers Care Rolling Machine Tender Name Role Phone Unavailable Primary Care Provider Unavailabl e Encounter Details Date Type Department Care Team (Late st Contact Info) Description 01/04/2019 Lab Requisition [facility] Lab [address] [facility] [place] [address] Maggie Lam DO [address] [facility] [address] [place] [address] Social History Tobacco Use Types Packs/Day Years Used Date Smoking Tobacco: Never Assessed Comments Unknown Sex and Gender Information Value Date Recorded Sex Assigned at Not on file Legal Sex Female 10:18 AM CDT Gender Identity Not on file Sexual Orientation Not on file documented as of this encounter Plan of Treatment Not on file documented as of this encounter Procedures Procedure Name Priority Date/Time Associated Diagnosis Comments DERMATOPATHOLOGY Routine 01/03/2019 12:0 0 AM CDT documented in this encounter Results * DERMATOPATHOLOGY (01/03/2019 12:00 AM CDT) Case Report Dermatopathology Report Case: [id number] Authorizing Provider: Maggie Lam DO Collected: 01/03/2019 12:00 AM Ordering Location: [facility] Care DermPath Lab Received: 01/04/2019 11:25 AM Pathologist: Hubert Lainez MD Specimen: Skin, left cheek 4:21 PM CDT DERMATOPATHOLOGY LABORATORY Final Diagnosis Specimen A. SKIN, left cheek: ACTINIC KERATOSIS, LICHENOID (L57.0) (see microscopic description) 4:21 PM T DERMATOPATHOLOGY LABORATORY at 1621 CDT Clinical History ISK vs BCC. 4:21 PM T DERMATOPATHOLOGY LABORATORY Gross Description Specimen A: Received is one formalin filled container labeled with the patient's name and designated left cheek. The specimen consists of a shave measuring [id number]. Jar 0. 4:21 PM CDT DERMATOPATHOLOGY LABORATORY Microscopic Description Specimen A. SKIN, left cheek: There is focal parakeratosis. The lower half of the epidermis shows disorderly maturation of keratinocytes with nuclear pleomorphism. The dermis shows a band-like, chronic inflammatory infiltrate with occasional apoptotic keratinocytes and some basal vacuolar alteration. Bonifacio-Ep4 does not highlight the tumor cells. Additional deeper sections were obtained and reviewed. 4:21 PM CDT DERMATOPATHOLOGY LABORATORY Disclaimer An external and internal positive and negative controls are appropriate for the histochemical, immunohistochemical and immunofluorescence stain(s) in this case (if any), except where stated explicitly. The performance characteristics of the stain(s) cited in this report were developed and its performance characteristic determined by the Dermatopathology Laboratory at [facility], directed by Dr. Candace Lainez. These tests need not be, and therefore are not, approved by the [place] Food and Drug Administration. The tests are used for clinical purposes. Billing Codes Specimen Charges Stain Charges 30650 1 04952 1 4:21 PM CDT DERMATOPATHOLOGY LABORATORY Embedded Images 4:21 PM CDT DERMATOPATHOLOGY LABORATORY Pathology/Cytolog y TISSUE SPECIMEN FROM SKIN / Unknown 01/03/2019 01/04/2019 11:25 AM CDT us Maggie Lam DO LAB - PATHOLOGY/CYTOLOGY ORDERABLES Final Result DERMATOPATHOLOGY LABORATORY [facility] - Department of Dermatology [address] [facility]th Floor Lab [address] [phone] documented in this encounter Visit Diagnoses Not on filedocumented in this encounter
--- OUTSIDE RECORDS SUMMARY | 2025-02-15 17:22 | XMS_ITS | Patient Health Record ---
Author Organization [facility] Address [address] [place], [place] [address] Care Team Providers Care Compressor Stations Superintendent Name Role Phone Meghan Michaud Unavailable [phone] Allergies No Known Allergies Results Component Value Reference Range Flag Notes .COMPREHENSIVE METABOLIC BACON EL (75521) CMP Reviewed date:11/27/2024 04:12:54 PM Interpretation: Performing Lab:[place], [facility]-[id number] Conrad Armendariz, [id number] Lakehsia Underwood MD Notes/Report: FASTING:YES FASTING: YES GLUCOSE 96 65-99 mg/dL N Fasting reference interval UREA NITROGEN (BUN) 19 7-25 mg/dL N CREATININE 0.75 0.50-0.97 mg/dL N EGFR 104 > OR = 60 mL/min/1.73m2 N BUN/CREATININE RATIO SEE NOTE: 6-22 (calc) Not Reported: BUN and Creatinine are within reference range. SODIUM 138 135-146 mmol/L N POTASSIUM 4.3 3.5-5.3 mmol/L N CHLORIDE 105 98-110 mmol/L N CARBON DIOXIDE 25 20-32 mmol/L N CALCIUM 8.9 8.6-10.2 mg/dL N PROTEIN, TOTAL 6.9 6.1-8.1 g/dL N ALBUMIN 4.7 3.6-5.1 g/dL N GLOBULIN 2.2 1.9-3.7 g/dL (calc) N ALBUMIN/GLOBULIN RATIO 2.1 1.0-2.5 (calc) N BILIRUBIN, TOTAL 1.1 0.2-1.2 mg/dL N ALKALINE PHOSPHATASE 64 31-125 U/L N AST 24 10-30 U/L N ALT 43 6-29 U/L H .LIPID PANEL, STANDARD (7600 ) Reviewed date:11/27/2024 04:12:54 PM Interpretation: Performing Lab:[facility] [employer] Stefania-[id number] Conrad Armendariz, [id number] Lakeshia Underwood MD Notes/Report: FASTING:YES FASTING: YES CHOLESTEROL, TOTAL 174 <200 mg/dL N HDL CHOLESTEROL 52 > OR = 50 mg/dL N TRIGLYCERIDES 74 <150 mg/dL N LDL-CHOLESTEROL 106 H Reference range: <100 Desirable range <100 mg/dL for primary prevention; <70 mg/dL for patients with CHD or diabetic patients with > or = 2 CHD risk factors. LDL-C is now calculated using the Becki calculation, which is a validated novel method providing better accuracy than the Friedewald equation in the estimation of LDL-C. Rod KENNEDY et al. BALDEMAR. 2013;310(19): 3508-4119 (http://[employer] Union/faq/UIE282) CHOL/HDLC RATIO 3.3 <5.0 (calc) N NON HDL CHOLESTEROL 122 <130 mg/dL (calc) N For patients with diabetes plus 1 major ASCVD risk factor, treating to a non-HDL-C goal of <100 mg/dL (LDL-C of <70 mg/dL) is considered a therapeutic option. .CBC (INCLUDES DIFF/PLT) (63 99) Reviewed date:11/27/2024 04:12:54 PM Interpretation: Performing Lab:Slava CROCKER-[id number] Conrad Armendariz, [id number] Lakeshia Underwood MD Notes/Report: FASTING:YES FASTING: YES WHITE BLOOD CELL COUNT 4.2 3.8-10.8 Thousand/uL N RED BLOOD CELL COUNT 4.20 3.80-5.10 Million/uL N HEMOGLOBIN 12.9 11.7-15.5 g/dL N HEMATOCRIT 40.0 35.0-45.0 % N MCV 95.2 80.0-100.0 fL N MCH 30.7 27.0-33.0 pg N MCHC 32.3 32.0-36.0 g/dL N condition. For adults, a slight decrease in the calculated MCHC value (in the range of 30 to 32 g/dL) is most likely not clinically significant; however, it should be interpreted with caution in correlation with other red cell parameters and the patient's clinical RDW 12.5 11.0-15.0 % N PLATELET COUNT 196 140-400 Thousand/uL N MPV 10.9 7.5-12.5 fL N ABSOLUTE NEUTROPHILS 2339 8815-5306 cells/uL N ABSOLUTE LYMPHOCYTES 0536 601-9403 cells/uL N ABSOLUTE MONOCYTES 290 200-950 cells/uL N ABSOLUTE EOSINOPHILS 160 15-500 cells/uL N ABSOLUTE BASOPHILS 29 0-200 cells/uL N NEUTROPHILS 55.7 N LYMPHOCYTES 32.9 N MONOCYTES 6.9 N EOSINOPHILS 3.8 N BASOPHILS 0.7 N THYROID PEROXIDASE ANTIBODIE S (5081) Reviewed date:11/28/2024 07:23:54 PM Interpretation: Performing Lab:LUR[facility] [address], [id number] Sarkis Dillard Notes/Report: FASTING:YES FASTING: YES THYROID PEROXIDASE ANTIBODIES 87 <9 IU/mL H VITAMIN B12/FOLATE, SERUM PA SOREN (7000) Reviewed date:11/27/2024 04:12:54 PM Interpretation: Performing Lab:[facility] [employer] [facility] Stefania-[id number] Conrad Armendariz, [id number] Lakeshia Underwood MD Notes/Report: FASTING:YES FASTING: YES VITAMIN B12 397 142-4456 pg/mL N pg/mL may experience neuropsychiatric and hematologic abnormalities due to occult B12 deficiency; less than 1% of patients with values above 400 pg/mL will have symptoms. Please Note: Although the reference range for vitamin B12 is 200-1100 pg/mL, it has been reported that between 5 and 10% of patients with values between 200 and 400 FOLATE, SERUM 5.7 N Reference Range Low: <3.4 Borderline: 3.4-5.4 Normal: >5.4 T4, FREE (866) Reviewed date:11/27/2024 04:12:54 PM Interpretation: Performing Lab:LIZZETTE Loopster-[id number] Conrad Velasquez, [id number] Lakeshia Underwood MD Notes/Report: FASTING:YES FASTING: YES T4, FREE 1.1 0.8-1.8 ng/dL N CORTISOL, TOTAL (367) Reviewed date:11/27/2024 04:12:54 PM Interpretation: Performing Lab:Slava CROCKER-[id number] Borges[address] Laekshia Underwood MD Notes/Report: FASTING:YES FASTING: YES CORTISOL, TOTAL 20.6 N Reference Range: For 8 a.m.(7-9 a.m.) Specimen: 4.0-22.0 Reference Range: For 4 p.m.(3-5 p.m.) Specimen: 3.0-17.0 * Please interpret above results accordingly * TSH (899) Reviewed date:11/27/2024 04:12:54 PM Interpretation: Performing Lab:Slava CROCKER [id number] Lakeshia Underwood MD Notes/Report: FASTING:YES FASTING: YES TSH 2.58 N Reference Range > or = 20 Years 0.40-4.50 Ranges First trimester 0.26-2.66 Second trimester 0.55-2.73 Third trimester 0.43-2.91 T3, FREE (82171) Reviewed date:11/27/2024 04:12:54 PM Interpretation: Performing Lab:Slava CROCKER [place] Lakeshia Underwood MD Notes/Report: FASTING:YES FASTING: YES T3, FREE 2.9 2.3-4.2 pg/mL N .VITAMIN D,25-OH,TOTAL,IA (1 7314) Reviewed date:11/27/2024 04:12:54 PM Interpretation: Performing Lab:Slava CROCKER [id number] Lakeshia Underwood MD Notes/Report: FASTING:YES FASTING: YES VITAMIN D,25-OH,TOTAL,IA 40 30-100 ng/mL N 25-OH VIT D, (D2,D3), LC/MS/MS is recommended: order Vitamin D Status 25-OH Vitamin D: code 41709 (patients >2yrs). See Note 1 Note 1 For additional information, please refer to http://education.Xinguodu.DigiZmart/faq/JVL446 (This link is being provided for informational/ educational purposes only.) Deficiency: <20 ng/mL Insufficiency: 20 - 29 ng/mL Optimal: > or = 30 ng/mL For 25-OH Vitamin D testing on patients on D2-supplementation and patients for whom quantitation of D2 and D3 fractions is required, the QuestAssureD(TM) ACTH, PLASMA (211) Reviewed date:11/30/2024 03:39:58 PM Interpretation: Performing Lab:Slava BLANTON/Bobbi RobledoVenkat [id number] Augusto Moulton, [id number] Michel Freedman M.D.,PhD Notes/Report: FASTING:YES FASTING: YES ACTH, PLASMA 21 6-50 pg/mL Reference range applies only to specimens collected between 7am-10am. 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 Michaud [address] [place] [address] 06/11/[address] Michaud [address] [place] [address] 09/03/2024 Meghan Michaud Hypothyroidism due t o Mehul thyroiditis E06.3 ; Autoimmune thyroiditis E06.3 ; Other fatigue R53.83 ; Vitamin D deficiency, unspecified E55.9 and Lipid screening Z13.[address] Michaud [address] [place] [phone] 12/12/2024 Meghan Michaud Hypothyroidism due t o Mehul thyroiditis E06.3 ; Autoimmune thyroiditis E06.3 ; Vitamin D deficiency, unspecified E55.9 ; Vitamin B12 deficiency E53.8 and Elevated ALT measurement R74.[address] [address] 06/20/2024 Meghan Michaud [address] [address] 06/21/2024 Meghan Michaud [address] [address] 08/22/2024 Meghan Michaud [address] [address] 09/13/2024 Meghan Michaud Hypothyroidism due t o Mehul thyroiditis E06.[address] [address] 09/13/2024 Meghan Michaud Hypothyroidism due t o Mehul thyroiditis E06.[address] Michaud [address] [place] [phone] 11/08/2024 Meghan Michaud Assessments Encounter Date Diagnosis (ICD Code) Assessment Notes Treatment Notes Treatment Clinical Notes Section Notes 09/03/2024 Autoimmune thyroiditis (ICD-10 - E06.3) 09/03/2024 Hypothyroidism due to Mehul thyroiditis (ICD-10 - E06.3) 09/13/2024 Hypothyroidism due to Mehul thyroiditis (ICD-10 - E06.3) 09/13/2024 Hypothyroidism due to Mehul thyroiditis (ICD-10 - E06.3) 12/12/2024 Autoimmune thyroiditis (ICD-10 - E06.3) 12/12/2024 Hypothyroidism due to Mehul thyroiditis (ICD-10 - E06.3) 12/12/2024 Vitamin D deficiency, unspecified (ICD-10 - E55.9) 09/03/2024 Other fatigue (ICD-10 - R53.83) 09/03/2024 Vitamin D deficiency, unspecified (ICD-10 - E55.9) 12/12/2024 Vitamin B12 deficiency (ICD-10 - E53.8) 12/12/2024 Elevated ALT measurement (ICD-10 - R74.01) 09/03/2024 Lipid screening (ICD-10 - Z13.220) 09/03/2024 Other Assessment and Plan: 1. Hypothyroidism- Diagnosed in 2008, previously tried Euthyrox, Levoxyl, Unithroid, and generic levothyroxine and failed all of the above due to GI intolerance, rash and weight gain/fatigue on continued therapies as they were ineffective- Generic formulations effective until 2018, with regulation difficulties post-- Tirosint 100 mcg daily initiated in 2019 with good efficacy for past six years- Current vitals: height 5'7, weight 150 pounds, blood pressure in 120s, BMI 23 (normal range) Plan:- Continue Tirosint 100 mcg PO daily- Submit prior authorization request to new insurance ([employer]) with documentation of previous medication trials and current efficacy of Tirosint- Prescribe Tirosint 100 mcg for a 90-day supply- Obtain laboratory studies for thyroid function in summer 2024- Follow-up appointment scheduled for October 2024 Spent 20 minutes preparing to see the patient (ex review of tests/chart), obtaining and / or reviewing separately obtained history, performing a medically appropriate examination and/or evaluation, counseling and educating the patient/family/car egiver, ordering medications, tests, or procedures, referring and communicating with other health infant childcare provider, documenting clinical information in the electronic or other health record, independently interpreting results and communicating results to the patient/family/car egiver and care coordinating patient plan. Patient alert and oriented x 4 and aware of discussion noted above and in agreeance to plan in management of hypothyroidism in setting of autoimmune thyroiditis. Due to the nature of telemedicine, the ability to do physical assessment was limited to what can be accomplished by patient directed telehealth visit based on instruction. Those limits are understood by the patient and myself. Impression is based on history, available information, and physical findings accomplished with telehealth visit. Chronic disease/problem list/ medication list reviewed and updated where indicated. Discussed diagnosis, plan including risks, benefits, and options of treatment. Advised to call for new, worsening, or persistent symptoms. Level of patient risk was of moderate complexity due to the documented nature of presentation, the information assessment required and the nature of the development of an evaluation and treatment plan as documented. PMH, FHx, SHx, Surgical Hx, Quality management review carried out and addressed as documented today as part of this visit. Medication list was reviewed and adjusted as indicated. Medication requiring a refill was addressed. Risk and benefits of any new medications were discussed and all questions were answered. 12/12/2024 Hyun Trotter, a patient with a history of thyroid issues and Gilbert's syndrome, presents for follow-up of weight loss, cholesterol management, and liver enzyme elevation. Hypercholesterolem iaAssessment: Patient's lipid panel shows borderline cholesterol levels. Total cholesterol is under 200, which is within normal limits. HDL cholesterol is 52, slightly below the optimal level of 60. LDL cholesterol is 106, which is within the goal of under 120. Triglycerides are reported as good. Patient maintains a clean diet with fruits, vegetables, meats, and gluten-free grains, avoiding processed foods.Plan:- Continue current dietary habits (fruits, vegetables, meats, gluten-free grains)- Reassess lipid panel at next follow-up Elevated liver enzyme (ALT)Assessment: Recent lab work shows ALT of 43, which is mildly elevated (upper limit of normal is 29). Patient denies gallbladder or liver pain. There is a history of Gilbert's syndrome with fluctuating bilirubin levels. The elevation is not severe enough to warrant immediate concern, but monitoring is advised. Differential diagnoses include non-alcoholic fatty liver disease, medication side effects, or other hepatic conditions.Plan:- Recommend turmeric supplement for liver support- Consider liver ultrasound in the future if ALT remains elevated- Educate patient on natural liver support options (milk thistle, lion's melodie, dandelion root)- Monitor ALT levels at future follow-ups Vitamin B12 deficiencyAssessme nt: Patient has a history of thyroid issues, which can be associated with B12 deficiency. Current B12 levels were not provided, but supplementation is recommended based on the patient's medical history.Plan:- Start methylated B12 supplement- Provided patient with in-office B12 supplement ($40) Vitamin D deficiencyAssessme nt: Patient has a history of vitamin D deficiency, with previous levels as low as 19. Recent supplementation has shown improvement, with levels approximately doubling.Plan:- Continue current vitamin D and K supplementation- Provided patient with in-office vitamin D supplement Weight managementAssessme nt: Patient's current weight is 148 lbs, which is reported as good and stable. No concerns raised about weight management during this visit.Plan:- Continue current dietary habits and lifestyle measures Glucose managementAssessme nt: Fasting blood glucose was 96 mg/dL, which is borderline but under 100 mg/dL, indicating adequate glucose control at this time.Plan:- Continue monitoring glucose levels at future visits Hypothyroidism TFTs in ideal range-continue tirosint 100 mcg daily Spent 25 minutes preparing to see the patient (ex review of tests/chart), obtaining and / or reviewing separately obtained history, performing a medically appropriate examination and/or evaluation, counseling and educating the patient/family/car egiver, ordering medications, tests, or procedures, referring and communicating with other health infant childcare provider, documenting clinical information in the electronic or other health record, independently interpreting results and communicating results to the patient/family/car egiver and care coordinating patient plan. Patient alert and oriented x 4 and aware of discussion noted above and in agreeance to plan in management of hypothyroidism, vit D/B12 def, dietary recommendations and recommendations for diet/ ALT elevation/monitori ng. Plan Of Treatment Next Appt Details Provider Name:Meghan Michaud, 09:20:00 AM, [address] [place] [address], [phone], Insurance Providers Payer Name Payer Address Payer Phone Subscriber Number Group Number Insured Name Patient Relationship to Insured Coverage Start Date Coverage End Date Jackelyn ORONA [address] [place] [address] [id number] Rose Marie Kebede Self - patient is the insured
--- OUTSIDE RECORDS SUMMARY | 2025-02-15 17:22 | XMS_ITS | Encounter Summary ---
Author Organization [facility] Address [address] [place] [address] Care Team Providers Care Housing Quality Standard Inspector Name Role Phone Unavailable Primary Care Provider Unavailabl e Encounter Details Date Type Department Care Team (Late st Contact Info) Description 01/02/2023 Lab Requisition [facility] - DermPath Lab [address] [facility], [place] [id number] Maggie Lam DO [address] [facility] [address] [address] [place] [address] Social History Tobacco Use Types Packs/Day Years [...] Priority Date/Time Associated Diagnosis Comments DERMATOPATHOLOGY Routine 01/02/2023 9:07 AM CDT documented in this encounter Results * DERMATOPATHOLOGY (01/02/2023 9:07 AM CDT) Case Report Dermatopathology Report Case: [id number] Authorizing Provider: Maggie Lam DO Collected: 01/02/2023 09:07 AM Ordering Location: [facility] Derm[facility] Lab Received: 01/02/2023 03:44 PM Pathologist: Leny Sherman MD Specimens: A) - Skin, left thigh B) - Skin, left neck 3 4:20 PM CDT DERMATOPATHOLOGY LABORATORY Final Diagnosis Specimen A. SKIN, left thigh: DERMATOFIBROMA (D23.9) Specimen B. SKIN, left neck: INTRADERMAL MELANOCYTIC NEVUS (D22.4) 3 4:20 PM CDT DERMATOPATHOLOGY LABORATORY at 1620 CDT Clinical History A) : DF BLEEDING IRRITATED B) : NEVUS BLEEDING IRRITATED 3 4:20 PM CDT DERMATOPATHOLOGY LABORATORY Gross Description Specimen A: Received is one formalin filled container labeled with the patient's name and designated left thigh. The specimen consists of a shave biopsy measuring 5x4x1 mm. Jar 0. Specimen B: Received is one formalin filled container labeled with the patient's name and designated left neck. The specimen consists of a shave biopsy measuring 3x3x2 mm. Jar 0. 3 4:20 PM CDT DERMATOPATHOLOGY LABORATORY Microscopic Description Specimen A. SKIN, left thigh: There is epidermal hyperplasia. Within the dermis, there are fibrohistiocytic cells in haphazard array among coarse collagen bundles. Specimen B. SKIN, left neck: There are nests of cytologically bland melanocytes within the dermis that mature with depth. 3 4:20 PM CDT DERMATOPATHOLOGY LABORATORY Disclaimer An external and internal positive and negative controls are appropriate for the histochemical, immunohistochemical and immunofluorescence stain(s) in this case (if any), except where stated explicitly. The performance characteristics of the stain(s) cited in this report were developed and its performance characteristic determined by the Dermatopathology Laboratory at [facility], directed by Dr. Candace Lainez. These tests need not be, and therefore are not, approved by the [place] Food and Drug Administration. The tests are used for clinical purposes. Billing Codes Specimen Charges Stain Charges 70373 23519 1 1 3 4:20 PM CDT DERMATOPATHOLOGY LABORATORY Embedded Images 3 4:20 PM CDT DERMATOPATHOLOGY LABORATORY Pathology/Cytology TISSUE SPECIMEN FROM SKIN / Unknown 01/02/2023 9:07 AM CDT 01/02/2023 3:44 PM CDT Miscellaneous samples (specimen) TISSUE SPECIMEN FROM SKIN / Unknown 01/02/2023 9:07 AM CDT 01/02/2023 3:44 PM CDT us Maggie Lam DO LAB - PATHOLOGY/CYTOLOGY ORDERABLES Final Result DERMATOPATHOLOGY LABORATORY [facility] - Department of Dermatology [facility] [address] [place] [address], [address] [phone] documented in this encounter Visit Diagnoses Not on filedocumented in this encounter
[2025-02-15 17:33] VITALS: BP 106/69; PULSE 70; RESP 17; TEMP 36.3; O2SAT 100
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
[2025-02-15] MEDS: ACETAMINOPHEN 500 MG TABLET 1000 MG PO (18:16)
--- OUTSIDE RECORDS SUMMARY | 2025-02-15 18:20 | XMS_ITS | Clinical Summary ---
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
--- OUTSIDE RECORDS SUMMARY | 2025-02-15 18:20 | XMS_ITS | Clinical Summary ---
Author Organization [facility] Health Address [address] [place] [address] Care Team Providers Care Veterinary Nurse Name Role Phone Unavailable Primary Care Provider Unavailabl e Source Comments [facility],non-owned Affiliates and Associated Physician Practices is amultiple site organization consisting of ambulatory clinics and hospital sitesin [place], [place], [place] and [place]. This disclosure is being madepursuant to the Care Everywhere program and may not contain all information available regarding this patient. Last updated 18.[facility] Allergies No known active allergies Immunizations Immunization [...] patient's age to complete this topic Insurance [facility]
--- OUTSIDE RECORDS SUMMARY | 2025-02-15 18:20 | XMS_ITS | Clinical Summary ---
Author Organization [facility] [place] Address [address] [place] [address] Care Team Providers Care Content Developer Name Role Phone Unavailable Primary Care Provider [...] 01/27/2027 INFLUENZA VACCINE Completed 02/11/2025 Insurance BLUE [employer] [facility]
--- OUTSIDE RECORDS SUMMARY | 2025-02-15 18:20 | XMS_ITS | Data Portability ---
Author Organization MD - [facility], Main Office Address [address] [place] [address] Assessment No assessment recorded. Plan of Treatment Reminders Order Date Submit Date Provider Last Modified By Organization Details Last Modified Time Details Appointments None recorded. Lab TSH + free T4, serum 2022 023 [facility], [address] [place] [address] [place], [address], 11:49:24 T3, free, serum or plasma 2022 023 [facility], [address] [place] [address], [address], 10:52:47 CMP, serum or plasma 2022 023 [facility], [address] [place] [address] [place], [address], 10:52:47 thyroid peroxidase (tpo) Ab, serum 2022 023 [facility], [address] [place] [address] 2, [place], [address], 10:52:47 Referral None recorded. Procedures None recorded. Surgeries None recorded. Imaging None recorded. Medication Orders Tirosint 112 mcg capsule 2022 023 [email or web address] [facility][id number], [address] [place], [address], 11:29:47 Patient TargetsNo targets recorded. Patient InstructionsNo instructions recorded. Reason for Referral None Reported. Results Created Date Observation Date Name Description Value Unit Range Abnormal Flag Note LastModifiedBy Organization Detail LastModifiedTime Result Notes None recorded. Problems Name Problem SNOMED Code Status Onset Date Resolution Date Notes Provider Name and Address Organization Details Recorded Time Hypothyroi dism 67532290 Completed 201802/19/2019 Not Available [facility] 3 04:48:46 Mehul thyroiditi s 87974375 Active 2018 Not Available [facility] 3 04:48:46 Hypothyroi dism in 947570342 Active 2021 Not Available [facility] 3 04:48:46 Prediabete s 248784739 Active 2021 Not Available [facility] 3 04:48:46 Hypothyroi dism due to Mehul' s thyroiditi s 376209211 Active 2022 Meghan Michaud MD [address] [place] [address] [address], [place], [address] , [facility] 3 10:51:40 Problem Notes None recorded. Procedures Surgical History Date Name Laterality Status Provider Name and Address Organization Details Recorded Time extraction of wisdom tooth completed Not Available [facility] 07/06/2022 04:42:19 Ankle Surgery completed Not Available [facility] 07/06/2022 04:42:19 Imaging Results None recorded. Procedure Notes None recorded. Medical Equipment None Reported. Allergies No known drug allergies Medications Name Sig Start Date Stop Date Status Note LastModified by Organization Details LastModified Time otc antigent 1-pack kit 07/11 completed Not Available Not Available Not Available amoxicillin 500 mg capsule 03/22 completed Not Available Not Available Not Available glyburide 5 mg tablet TAKE HALF A TABLET BY MOUTH BEDTIME 07/11 completed Not Available Not Available Not Available hydrocodone 5 mg-acetamin ophen 325 mg tablet 03/22 completed Not Available Not Available Not Available Synthroid 100 mcg tablet Take 1 tablet every day by oral route. 11/20 completed Not Available Not Available Not Available folic acid 400 mcg tablet Take 1 tablet every day by oral route in the morning for 90 days. 09/08 completed Not Available Not Available Not Available liothyronin e 5 mcg tablet Take 1 tablet every day by oral route at bedtime for 30 days. active Not Available Not Available No t Available alprazolam 0.5 mg tablet 10/01 completed Not Available Not Available Not Available OneTouch Ultra Test strips 07/11 completed Not Available Not Available Not Available fluoxetine 10 mg capsule TAKE 1 CAPSULE BY MOUTH EVERY DAY 07/11 completed Not Available Not Available Not Available cyanocobala min (vit B-12) 1,[address] 1 tablet every day by sublingua l route in the morning for 90 days. 09/08 completed Not Available Not Available Not Available mupirocin 2 % topical ointment APPLY TO AFFECTED AREA OF WOUND TWICE DAILY 07/11 completed Not Available Not Available Not Available ibuprofen 600 mg tablet 03/22 completed Not Available Not Available Not Available fluoxetine 20 mg capsule TAKE 1 CAPSULE BY MOUTH EVERY DAY active Not Available Not Available No t Available Microlet Lancet 07/11 completed Not Available Not Available Not Available amoxicillin 500 mg-potassiu m clavulanate 125 mg tablet TAKE 1 TABLET BY MOUTH EVERY 6 HOURS FOR 7 DAYS 07/11 completed Not Available Not Available Not Available Tirosint 88 mcg capsule TAKE 1 CAPSULE BY MOUTH EVERY DAY IN THE MORNING 10/01 completed Not Available Not Available Not Available Tirosint 112 mcg capsule TAKE 1 CAPSULE BY MOUTH EVERY DAY IN THE MORNING FOR 90 DAYS active Not Available Not Available No t Available Afluria Quad (PF) 60 mcg (15 mcg x 4)/0.5 mL IM syringe ADM 0.5ML IM UTD 07/11 completed Not Available Not Available Not Available Afluria Qd 2018- (36 mos up)(PF)60 mcg (15 mcg x4)/0.5 mL IM syringe 07/11 completed Not Available Not Available Not Available Flucelvax Quad (PF) 60 mcg (15 mcg x 4)/0.5 mL IM syringe 07/11 completed Not Available Not Available Not Available BinaxNOW COVID-19 Ag Self Test kit 07/11 completed Not Available Not Available Not Available Vitals Date Recorded Body height Body mass index (BMI) Body weight Heart rate Body temperature Systolic And Diastolic Provider Name and Address Organization Details Last Updated DateTime 3 170.18 cm 24.3 kg/m2 29344.8 2 g 80 /min 98.3 [degF] 102/60 mm[Hg] ALICIA Lizama [place] - [facility] 3 10:41:45 Date Recorded Body mass index (BMI) Body height Oxygen saturation Oxygen saturation in Arterial blood by Pulse oximetry Heart rate Body temperature Body weight Systolic And Diastolic Provider Name and Address Organization Details Last Updated DateTime 2 23.3 kg/m2 170.18 cm 98 % 98 % 80 /min 97.8 [degF] 92557.2 6 g 105/65 mm[Hg] Not Available [facility] 3 04:44:00 Date Recorded Body mass index (BMI) Body height Oxygen saturation Oxygen saturation in Arterial blood by Pulse oximetry Heart rate Body temperature Body weight Systolic And Diastolic Provider Name and Address Organization Details Last Updated DateTime 2 24.1 kg/m2 170.18 cm 98 % 98 % 83 /min 97.8 [degF] 87838.2 2 g 110/72 mm[Hg] Not Available [facility] 3 04:44:00 Date Recorded Body mass index (BMI) Body height Oxygen saturation Oxygen saturation in Arterial blood by Pulse oximetry Heart rate Body temperature Body weight Systolic And Diastolic Provider Name and Address Organization Details Last Updated DateTime 2 24.9 kg/m2 170.18 cm 99 % 99 % 90 /min 98.4 [degF] 31222.1 9 g 112/70 mm[Hg] Not Available [facility] 3 04:44:00 Date Recorded Body mass index (BMI) Body height Oxygen saturation Oxygen saturation in Arterial blood by Pulse oximetry Heart rate Body temperature Body weight Systolic And Diastolic Provider Name and Address Organization Details Last Updated DateTime 2 24.1 kg/m2 170.18 cm 98 % 98 % 75 /min 97.3 [degF] 38797.2 2 g 115/75 mm[Hg] Not Available [facility] 3 04:44:01 Social History Question Answer Notes LastModified by Organizat ion Details LastModified Time Tobacco Smoking Status Never Smoker Not Available [facility] 07/06/2022 04:14:06 What Is Your Level Of Caffeine Consumption? None [id number] Information not available 07/06/2022 In The 14 Days Before Symptom Onset, Have You Had Close Contact With A Laboratory-confirm ed COVID-19 While That Case Was Ill? No [id number] Information not available 07/06/2022 In The 14 Days Before Symptom Onset, Have You Had Close Contact With A Person Who Is Under Investigation For COVID-19 While That Person Was Ill? No [id number] Information not available 07/06/2022 What Type Of Diet Are You Following? REGULAR [id number] Information not available 07/06/2022 Which Illicit Or Recreational Drugs Have You Used? None [id number] Information not available 07/06/2022 What Is Your Relationship Status? [id number] Information not available 07/06/2022 Have You Recently Traveled Abroad? No [id number] Information not available 07/06/2022 Do You Have Any Dietary Restrictions? No [id number] Information not available 07/06/2022 Sex: Female Functional Status Question Answer Note LastModified by Organizat ion Details LastModified Time Do you use any illicit or recreational drugs? No [id number] Information not available 07/06/2022 What is your level of alcohol consumption? 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 Never used electronic cigarettes [id number] Information not available 07/06/2022 Mental Status None recorded. Family History Nothing Reported. Medical History Condition Response HYPOTHYROIDISM Y Gynecological HistoryNo gynecological history recorded. Obstetrics History GPAL:G 0 P 0 0 0 0 Past Encounters Encounter ID Performer Location Encounter Start Date Encounter Closed Date Diagnosis/Indication Diagnosis SNOMED-CT Code Diagnosis ICD10 Code Diagnosis IMO Codes Diagnosis Note [id number] Meghan Michaud MD [facility] [address] [place] [address] 09/08/2020 00:00:00 09/08/2020 11:20:05 [id number] Meghan Michaud MD [facility] [address] [place] [address] 03/12/2021 00:00:00 03/12/2021 15:24:25 [id number] [facility] [address] [place] [address] 07/16/2021 00:00:00 07/16/2021 14:40:15 [id number] Meghan Michaud MD [facility] [address] [place] [address] 10/01/2021 00:00:00 10/01/2021 12:14:27 [id number] Meghan Michaud MD [facility] [place] [address] [place] [address] 11/12/2021 00:00:00 11/12/2021 09:47:55 [id number] Meghan Michaud MD [facility] [place] [address] [place] [address] 03/22/2022 00:00:00 03/22/2022 12:02:18 [id number] Meghan Michaud MD [facility] [place] [address] [place] [address] 07/11/2022 10:26:43 07/11/2022 10:56:34 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 She was reminded to take her tirosint on empty stomach with glass of water and wait one hour to eat or have her coffee in morning and up to 4 hours if ever taking any heartburn or reflux medication s to help optimize absorption . Discussed paleo like diet with restrictio n of GMOs to help with energy and to optimize absorption of vitamins and minerals and reduce inflammati on. Spent up to 18 minutes preparing to see the patient (eg, review of tests), obtaining and/or reviewing separately obtained history, performing a medically appropriat e examinatio n and evaluation , counseling and educating the patient, ordering medication s, tests, along with documentin g clinical informatio n in the electronic health record, sixto lloyd interpreti ng results and communicat ing results to the patient. RTC in 6 months. Patient was provided a handwritte n lab order which contains our fax number. If she chooses to go outside of the [facility] system to obtain labwork she was advised to provide our fax number and my informatio n to the lab she will be obtaining labwork from in order to have her labs properly forwarded over for me to review so there is no loss of follow up due to use of outside network. She was also advised to contact our clinic informing us that she has completed her labwork so we are aware we will need to reach out to the appropriat e laboratory to request her results be forwarded to us so I might have the ability to review and make further medical decision making in her case. She voiced understand ing. Health Concerns Section Related Observation LastModified by Organization Detai ls LastModified Time None Recorded Concern Status LastModified by Organization Details LastModified Time None Recorded Advance Directives Directive None Recorded Payers Insurance Date Sequence Insurance Name Policy Number Policy Fontenot Covered Member ID Fontenot Member ID Guarantor Name 07/11/2022 1 [facility] ([facility] [id number] Rose Marie Higgins [id number] 50 Rose Marie Higgins 07/11/2022 1 [facility] [id number] Rose Marie Higgins [id number] Rose Marie Higgins Notes Date Note Type Note Provider Name and Address Organization Details Recorded Time 07/11/2022 text/html ROS as noted in the HPI 36 yo female comes in for follow up in management of 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 She has good energy and focus overall. No concerns at this time. labs from 06/27/22:TSH of 2.420 uIU/mlFT4 of 1.46 ng/dLglucose 91 mg/dlCr normalLFT normalTPO 199 IU/mlFT3 of 2.6 pg/ml Meghan Michaud MD [address], [place], [address], [place] [facility] 07/11/2022 11:31:23 OBGyn Episode No OBEpisode recorded.
--- OUTSIDE RECORDS SUMMARY | 2025-02-15 18:20 | XMS_ITS | Encounter Summary ---
Author Organization [facility] Address [address] [place] [address] Care Team Providers Care Coffee Host Name Role Phone Unavailable Primary Care Provider Unavailabl e Encounter Details Date Type Department Care Team (Late st Contact Info) Description 01/02/2023 Lab Requisition [facility] - DermPath Lab [address] [facility] [place] [id number] Maggie Lam DO [address] [facility] [address] [place] [address] Social History Tobacco Use Types Packs/Day Years [...] AM CDT) Case Report Dermatopathology Report Case: [id number] Authorizing Provider: Maggie Lam DO Collected: 01/02/2023 09:07 AM Ordering Location: [facility] Derm[facility] Lab Received: 01/02/2023 03:44 PM Pathologist: [...] characteristic determined by the Dermatopathology Laboratory at [facility], directed by Dr. Candace Lainez. These tests need not be, and therefore are not, approved by the [place] Food and Drug Administration. The tests are used for clinical purposes. Billing Codes Specimen Charges Stain Charges 40503 22028 1 1 3 4:20 PM CDT DERMATOPATHOLOGY LABORATORY Embedded Images 3 4:20 PM CDT DERMATOPATHOLOGY LABORATORY Pathology/Cytology TISSUE SPECIMEN FROM SKIN / Unknown 01/02/2023 9:07 AM CDT 01/02/2023 3:44 PM CDT Miscellaneous samples (specimen) TISSUE SPECIMEN FROM SKIN / Unknown 01/02/2023 9:07 AM CDT 01/02/2023 3:44 PM CDT us Maggie Lam DO LAB - PATHOLOGY/CYTOLOGY ORDERABLES Final Result DERMATOPATHOLOGY LABORATORY [facility] - Department of Dermatology Specialized Medicine [address] [place] [address], [address] [phone] documented in this encounter Visit Diagnoses Not on filedocumented in this encounter
--- OUTSIDE RECORDS SUMMARY | 2025-02-15 18:20 | XMS_ITS | Encounter Summary ---
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 Name Role Phone Unavailable Primary Care Provider Unavailabl e Encounter Details Date Type Department Care Team (Late st Contact Info) Description 01/04/2019 Lab Requisition [facility] DermPath Lab [address] [facility] [place] [address] Maggie Lam DO [address] [facility] [address] [place] [address] Social History Tobacco Use Types Packs/Day Years [...] AM CDT) Case Report Dermatopathology Report Case: [id number] Authorizing Provider: Maggie Lam DO Collected: 01/03/2019 12:00 AM Ordering Location: [facility] DermPath Lab Received: 01/04/2019 11:25 AM [...] The specimen consists of a shave measuring [id number]. Jar 0. 4:21 PM CDT DERMATOPATHOLOGY LABORATORY [...] characteristic determined by the Dermatopathology Laboratory at [facility], directed by Dr. Candace Lainez. These tests need not be, and therefore are not, approved by the [place] Food and Drug Administration. The tests are used for clinical purposes. Billing Codes Specimen Charges Stain Charges 06940 1 05004 1 4:21 PM CDT DERMATOPATHOLOGY LABORATORY Embedded Images 4:21 PM CDT DERMATOPATHOLOGY LABORATORY Pathology/Cytolog y TISSUE SPECIMEN FROM SKIN / Unknown 01/03/2019 01/04/2019 11:25 AM CDT us Maggie Lam DO LAB - PATHOLOGY/CYTOLOGY ORDERABLES Final Result DERMATOPATHOLOGY LABORATORY [facility] - Department of Dermatology [address] [facility], 5th Floor Lab [address] [phone] documented in this encounter Visit Diagnoses Not on filedocumented in this encounter
[2025-02-15 18:35] VITALS: BP 104/73; PULSE 75; RESP 20; O2SAT 97
[2025-02-15 20:23] VITALS: BP 104/73; PULSE 68; RESP 12; O2SAT 99
== END 2025-02-15 19:54 | disposition home or self-care (01) ==
PROVIDERS: Emergency Provider Emergency Medicine; PCP Family Medicine
DX: S06.0X0A Concussion without loss of consciousness, initial encounter (principal); E03.9 Hypothyroidism, unspecified; W51.XXXA Accidental striking against or bumped into by another person, initial encounter
CPT/HCPCS: 70450; 99284; A9270